=== PATIENT | female | born 2000 | race Caucasian/White ===

== ENCOUNTER 2024-06-16 15:39 | Emergency (ER) | payer MEDICAID ==
[~2024-06-16] VITALS: Ht 152.4 cm; Wt 56.8 kg
[2024-06-16 16:00] VITALS: BP 119/79; PULSE 74; RESP 18; TEMP 98.2; O2SAT 100
[2024-06-16] MEDS ORDERED: ALBU18HF12 IH (16:04)
[2024-06-16] MEDS: ACETAMINOPHEN/CODEINE 300-30 MG TABLET PO ONE (17:57)
[2024-06-16] MEDS: KETOROLAC TROMETHAMINE 60 MG/2 ML VIAL IM ONE (17:58)
[2024-06-16] MEDS ORDERED: IBUP-1554 PO (19:24)
[2024-06-16] MEDS ORDERED: ACET-66 PO (19:24)
== END 2024-06-16 19:45 | disposition home or self-care (01) ==
LOC: EMS 15:43
DX: S63.502A Unspecified sprain of left wrist, initial encounter (principal); S20.211A Contusion of right front wall of thorax, initial encounter; S80.211A Abrasion, right knee, initial encounter; J45.909 Unspecified asthma, uncomplicated; V89.2XXA Person injured in unspecified motor-vehicle accident, traffic, initial encounter; Y93.89 Activity, other specified; Y92.89 Other specified places as the place of occurrence of the external cause; Y99.8 Other external cause status
CPT/HCPCS: 99284; 71101; 73110; 73562; 96372; J1885